=== PATIENT | female | born 1970 | race Caucasian/White ===

== ENCOUNTER → 2020-11-06 10:29 | Outpatient (CLI) | payer OTHER, SELFPAY ==
--- NOTE | ~2020-11-06 | DEXA_ITS ---
Bone Density Report Name: Joy Gomez Age: 50 Sex: Female Ethnicity: White Date of : 1970 Indication: postmenopausal; screening for osteoporosis; Referring Provider: Jo, Galilea Study: Bone densitometry was performed. Exam Date: November 06, 2020 Accession number: [id number] Bone Density: Region BMD T-score Z-score Classification AP Spine (L1-L4) 1.073 0.2 1.1 Normal Femoral Neck (Left) 0.888 0.4 1.3 Normal Total Hip (Left) 1.108 1.4 1.9 Normal Femoral Neck (Right) 0.812 -0.3 0.6 Normal Total Hip (Right) 1.040 0.8 1.4 Normal Total Hip Mean 1.074 1.1 1.7 Normal World Health Organization criteria for BMD impression classify patients as: Normal (T-score at or above -1.0), Osteopenia (T-score between -1.0 and -2.5), or Osteoporosis (T-score at or below -2.5). 10-year Fracture Risk: FRAX not reported because: All T-scores for Spine Total, Hip Total, Femoral Neck at or above -1.0 Previous Exams: Region Exam Age BMD T-score BMD Change BMD Change Date g/cm2 vs Baseline vs Previous AP Spine(L1-L4) 11/06/2020 50 1.073 0.2 0.054* 0.054* 03/13/2018 48 1.019 -0.3 Total Hip(Left) 11/06/2020 50 1.108 1.4 0.037* 0.037* 03/13/2018 48 1.071 1.1 Total Hip(Right) 11/06/2020 50 1.040 0.8 0.022 0.022 03/13/2018 48 1.018 0.6 *Denotes significance at 95% confidence level, LSC for AP Spine = 0.022 g/cm2, LSC for Total Hip = 0.027 g/cm2 Clinical Information Provided by Patient: Has used the following medications: Vitamin D Patient maximum height was 63 Menopause Age: 46 No regular weight bearing exercise Drinks caffeinated beverages Onset of menses at age 12 Number of children 2 Impression: The patient has normal bone mass. No significant bone loss was observed. Discussion: BONE DENSITY IS ABOVE THE MINIMUM DESIRABLE LEVEL AT ALL SKELETAL SITES TESTED. This patient?s bone mineral density is above the minimum desirable level (T-score -1.0 or better) at all sites measured. The patient should follow a healthful lifestyle (good nutrition with adequate calcium and vitamin D, and appropriate weight-bearing exercise). Follow-Up: Consider repeating this study in 5 years or sooner if there is some new clinical indication. Reported by: [facility] on 11/06/2020 10:44:00 AM. Reviewed, dictated and finalized at location A.
== END ==
PROVIDERS: PCP Family Medicine; Visit Provider Nurse Practitioner
DX: Z78.0 Asymptomatic menopausal state (principal)
CPT/HCPCS: 77080

== ENCOUNTER 2021-01-30 08:51 | Outpatient (CLI) | payer OTHER, SELFPAY ==
--- NOTE | ~2021-01-30 | XR_ITS ---
EXAMINATION: CT abdomen pelvis wo con, XR abdomen/kub 1V DATE: 01/30/2021 09:15 (accession [id number]), 01/30/2021 09:19 (accession [id number]) INDICATION: Left flank pain TECHNIQUE: Computed tomography (CT) of the abdomen and pelvis was performed without intravenous contr ast. The dose-length product was 1064.87 mGy-cm. Automated exposure control and iterative reconstruct ion technique were employed. KUB. COMPARISON: CT dated 09/26/2005. FINDINGS: Lung bases are unremarkable. No significant pleural or pericardial effusion heart size is n ormal. The spleen, pancreas, adrenal glands are unremarkable. There is a low-density lesion in the ri ght hepatic lobe measuring 1.3 cm. Recommend correlation with ultrasound. There are nonobstructing le ft renal stones, largest measuring 8.5 mm. No ureteral stones or hydronephrosis. Bladder is unremarka ble. Nonobstructive bowel gas pattern. Left renal stones are visible by KUB. No significant vascular abnormality. Severely atrophic right kidney. No acute bone or joint abnormality. IMPRESSION: 1. Left nephrolithiasis. 2: New hypodensity right hepatic lobe measuring 1.3 cm. Correlation with ultrasound recommended. Reviewed, dictated and finalized at location B. IMPRESSION: 1. Left nephrolithiasis. 2: New hypodensity right hepatic lobe measuring 1.3 cm. Correlation with ultras ound recommended.
== END 2021-01-30 08:52 | disposition home or self-care (01) ==
PROVIDERS: PCP Family Medicine; Visit Provider Urology
DX: R10.9 Unspecified abdominal pain (principal); N20.0 Calculus of kidney; R93.2 Abnormal findings on diagnostic imaging of liver and biliary tract
CPT/HCPCS: 74018; 74176

== ENCOUNTER 2021-02-06 12:14 | Outpatient (CLI) | payer OTHER, SELFPAY ==
--- NOTE | ~2021-02-06 | XR_ITS ---
EXAMINATION: XR abdomen/kub 1V DATE: 02/06/2021 12:45 INDICATION: Left flank pain. TECHNIQUE: A supine view of the abdomen on 2 radiographs was obtained. COMPARISON: CT abdomen and pelvis 01/30/2021 FINDINGS: There are no dilated loops of bowel. There are 4 stones in left kidney measuring up to 7 mm . IMPRESSION: 1. Left kidney stones. Reviewed, dictated and finalized at location A. IMPRESSION: 1. Left kidney stones.
== END 2021-02-06 12:15 | disposition home or self-care (01) ==
LOC: ANHIMG 12:18
PROVIDERS: PCP Family Medicine; Visit Provider Nurse Practitioner Family
DX: R10.9 Unspecified abdominal pain (principal); R35.0 Frequency of micturition; N20.0 Calculus of kidney
CPT/HCPCS: 74018

== ENCOUNTER 2021-02-23 10:08 | Outpatient (CLI) | payer OTHER, SELFPAY ==
--- NOTE | ~2021-02-23 | US_ITS ---
EXAMINATION: US abdomen limited EXAM DATE: 02/23/2021 11:39 INDICATION: K76.9 - Liver disease, unspecified . New hypodensity on CT, and ultrasound recommended. TECHNIQUE: Multiple grayscale and Doppler images of the abdomen right upper quadrant were obtained (b y a technologist who performed the scan) and subsequently reviewed. Correlation is made to CT abdomen 01/30/2021. FINDINGS: The pancreatic head and body are normal in appearance. The pancreatic tail is not visualized. The l iver has normal echogenicity and contour. Probable identification of the medially located right live r lobe lesion, measuring 1.7 x 1.3 x [address] it measures between 3 and 8 Hounsfield units consi stent with fluid. It is hypoechoic on this examination, nonspecific. There is no evidence of intrahepatic biliary duct dilation. Portal venous flow was seen in the hepat opedal, normal direction and has normal Doppler waveform. No right-sided hydronephrosis. Common bile duct measures 1-2 mm, which is normal. The gallbladder wall is normal in thickness, with expected amount of distention. No sonographic evidence of pericholecystic fluid. There is no cholel ithiases. Technologist performing exam reports patient did not demonstrate sonographic Barrios's sign. Please note that this sign is less reliable in patients who have received pain medication. IMPRESSION: Right liver lobe lesion probably cyst, but nonspecific by ultrasound. Optional 6-12 month follow-up ultrasound to confirm temporal stability. Reviewed, dictated and finalized at location A. IMPRESSION: Right liver lobe lesion probably cyst, but nonspecific by gerson munguia. Optional 6-12 month follow-up ultrasound to confirm temporal stability.
== END 2021-02-23 10:09 | disposition home or self-care (01) ==
LOC: ANHIMG 10:18
PROVIDERS: PCP Family Medicine; Visit Provider Family Medicine
DX: K76.9 Liver disease, unspecified (principal)
CPT/HCPCS: 76705

== ENCOUNTER 2021-03-03 10:35 | Outpatient (CLI) | payer OTHER, SELFPAY ==
--- NOTE | 2021-03-03 10:54 | ECG_ITS ---
Measurements Intervals [place] Rate: 77 P: 64 MS: 155 QRS: 40 QRSD: 93 T: 6 QT: 402 QTc: 457 Interpretive Statements SINUS RHYTHM WITH SINUS ARRHYTHMIA VENTRICULAR PREMATURE COMPLEXES BORDERLINE ST-T WAVE ABNORMALITY- ANTEROLAT/INF LEADS BORDERLINE ECG Electronically Signed On 03-03-2021 11:12:00 CDT by Tyron Laurent D.O.
[2021-03-03 11:13] LABS: INR 0.9; Partial Thromboplastin Time 24.8 SECONDS (22.3-36.8); Prothrombin Time 12.2 Seconds (11.1-14.7)
== END 2021-03-03 10:36 | disposition home or self-care (01) ==
PROVIDERS: PCP Family Medicine; Referring Provider Anesthesiology; Visit Provider Urology
DX: N20.0 Calculus of kidney (principal); I10 Essential (primary) hypertension; Z01.818 Encounter for other preprocedural examination; R94.31 Abnormal electrocardiogram [ECG] [EKG]
CPT/HCPCS: 36415; 85610; 85730; 87086; 93005

== ENCOUNTER 2021-03-06 01:05 | Day surgery (SDC) | payer OTHER, SELFPAY ==
--- NOTE | 2021-03-02 07:47 | P.HP_ITS ---
History of Present Illness History of Present Illness Consent: Risks, benefits, and alternatives have been discussed and questions answered. Patient agrees to proceed with procedure. Chief complaint: Left Renal Kidney Stone Narrative: Joy Gomez is a 51 year old female who has a history of spontaneously passing multiple stones in the past, but never requiring intervention. She recently presented with left flank pain and imaging demonstrated several stones in her left kidney up to 7 millimeters. After discussion of options he elected to proceed with left ESWL. She is aware of alternative treatment options and aware of the risk of this procedure including, but not limited to, persistent stone, injury to the kidney, hematuria. Review of Systems Cardiovascular: Cardiovascular: Denies chest pain, Denies lightheadedness, Denies palpitations and Denies dyspnea Respiratory: Respiratory: Denies dyspnea Gastrointestinal: Gastrointestinal: Denies diarrhea, Denies nausea and Denies vomiting Genitourinary: Genitourinary: Denies hematuria and Denies dysuria Endocrine: Endocrine: Denies palpitations PMFSH Past Medical History Medical History Atrophy of right kidney Single kidney Family History Family History Mother Family history of mental disorder Depression Family history of emphysema Father Family history of cardiovascular disease Family history of malignant neoplasm Acute myocardial infarction Other Diabetes mellitus Family history of allergic disorder Hypertension Social History Social History Smoking status: Never smoker Alcohol intake: current Alcohol use details: rarely Spiritual care concerns: No Meds Home Medications and Allergies Home Medications Medication Instructions Recorded Confirmed Type amlodipine 5 mg tablet 5 mg PO DAILY #90 tablet 02/19/21 02/19/21 Rx cholecalciferol (vitamin D3) 100 100 mcg PO DAILY 02/19/21 02/19/21 History mcg (4,000 unit) tablet lisinopril 10 1 tablet PO DAILY #90 tablet 02/19/21 02/19/21 Rx mg-hydrochlorothiazide 12.5 mg tablet atorvastatin 10 mg tablet 10 mg PO QHS #90 tablet 02/20/21 Rx Allergies Allergy/AdvReac Type Severity Reaction Status Date / Time shellfish derived Allergy Severe Swelling Verified 02/19/21 16:39 of the Eye Penicillins Allergy Intermediate Skin Verified 02/19/21 16:39 Reaction Exam Const: General: no acute distress Resp: Effort & Inspection: normal respiratory effort GI: Inspection: non-distended GI Palp: No abdominal tenderness and No Guarding due to palpation present (GI) Auscultation: normal bowel sounds Assessment and Plan Assessment and plan (1) Calculus of kidney: Code(s): N20.0 - Calculus of kidney Status: Acute Assessment and Plan: * Left ESWL
--- NOTE | ~2021-03-06 | XR_ITS ---
XR abdomen/kub 1V 03/06/2021 06:48 INDICATION: Renal stones. TECHNIQUE: KUB COMPARISON: 02/06/2021 FINDINGS: Bowel gas pattern is normal. There is no evidence of free air, mass, organomegaly, ascites or obstruction. There are multiple left renal stones, largest in the lower pole measuring 8 mm. Righ t kidney is partially obscured by bowel content. The bones appear intact. IMPRESSION: 1: Left nephrolithiasis.. Reviewed, dictated and finalized at location A. IMPRESSION: 1: Left nephrolithiasis..
--- NOTE | 2021-03-06 06:36 | WPDHPUPDATE1 ---
History and Physical Update Update Date/Time: 03/06/21 06:36 History and Physical has been reviewed, including an updated exam of the patient. There are NO changes in the patient's condition. Risks, benefits, and alternatives have been discussed and questions answered. Patient agrees to proceed with procedure.
[2021-03-06] MEDS: LACTATED RINGERS 1,000 ML 30 ML IV CONT (07:26)
--- NOTE | 2021-03-06 07:40 | WPDANESEPPF ---
Anes - Initial Pre Proc Eval Procedure: Operation Date: 03/06/21 08:30 Proposed Procedures p Left Renal Extracorporeal Shock Wave Lithotripsy - Jacobo Arellano MD Date/Time: 03/06/21 07:40 Surgeon: Jacobo Arellano MD Pre Op Diagnosis: Left Renal Kidney Stone Patient Data Age: 51 Gender: F Height: Weight: Allergies Allergy/AdvReac Type Severity Reaction Status Date / Time shellfish derived Allergy Severe Swelling Verified 03/06/21 07:42 of the Eye Penicillins Allergy Intermediate Skin Verified 03/06/21 07:42 Reaction Home Medications Medication Instructions Recorded Confirmed Type cholecalciferol (vitamin D3) 100 100 mcg PO DAILY 02/19/21 02/19/21 History mcg (4,000 unit) tablet lisinopril 10 1 tablet PO DAILY #90 tablet 02/19/21 02/19/21 Rx mg-hydrochlorothiazide 12.5 mg tablet atorvastatin 10 mg tablet 10 mg PO QHS #90 tablet 02/20/21 Rx amlodipine 5 mg PO HS 03/03/21 History Patient hx anesthesia problems: none Family hx anesthesia problems: none PMFSH Past Medical History Medical History (Updated 03/06/21 @ 07:43 by Bill Ferreira MD) Atrophy of right kidney Hyperlipidemia Obesity Single kidney Surgical History Surgical History History of lithotripsy Family History Family History Mother Family history of mental disorder Depression Family history of emphysema Father Family history of cardiovascular disease Family history of malignant neoplasm Acute myocardial infarction Other Diabetes mellitus Family history of allergic disorder Hypertension Social History Social History Smoking status: Never smoker Alcohol intake: current Drinks per week: 1 Alcohol use details: rarely Living arrangements: with family Spiritual care concerns: No Anes - Eval Final PreProcedure Day of Procedure 03/06/21 07:40 Patient weight: obese Heart: regular rate and rhythm Lungs: clear to auscultation Airway: Mallampati scale class II Neurological: alert and oriented Last oral intake: >/= 8 hours ASA classification: II Emergent: no Anesthetic plan: proceed Anesthesia type and monitoring: general LMA and standard monitoring Informed Consent: The patient's anesthetic plan and its attendant risks and benefits were discussed with the patient/family/POA. Questions were solicited and answers provided to the satisfaction of the patient/family/POA.
[2021-03-06 07:46] VITALS: BP 145/84; PULSE 94; RESP 16; TEMP 36.5; O2SAT 100
[2021-03-06] MEDS: ceFAZolin 2 GM/D5W 50 ML 2 GM/50 ML BAG IVPB (08:21)
--- NOTE | 2021-03-06 08:53 | W.PM.PROC2 ---
Procedure Note - Detailed Date of Procedure 03/06/21 Pre-op Diagnosis Left Kidney Stone Post-op Diagnosis same Procedure Performed Left ESWL Surgeon Jacobo Arellano MD Description of Procedure The patient was brought to the operative suite where she was placed in the supine position on the Dornier lithotripsy table. The focal point of the lithotripter was placed at a 7mm left renal calculus. A total of 2500 shocks were delivered at a power setting of 4. There appeared to be good fragmentation of the stone. The patient tolerated the procedure well and was taken to the recovery room in good condition. Drains No Packing No Pathology none sent Complications No immediate complications Condition stable Disposition PACU
[2021-03-06 09:03] VITALS: BP 107/52; PULSE 57; RESP 14; TEMP 36.2; O2SAT 98
[2021-03-06 09:15] VITALS: BP 107/57; PULSE 56; RESP 13; O2SAT 100
[2021-03-06 09:30] VITALS: BP 122/62; PULSE 64; RESP 18; O2SAT 100
[2021-03-06 09:39] VITALS: BP 146/72; PULSE 57
[2021-03-06 10:10] VITALS: BP 141/71; PULSE 58
== END 2021-03-06 10:17 | disposition home or self-care (01) ==
PROVIDERS: PCP Family Medicine; Visit Provider Urology
PROC: (CPT 50590; principal; 2021-03-06 08:30)
DX: N20.0 Calculus of kidney (principal); E78.5 Hyperlipidemia, unspecified; E66.9 Obesity, unspecified; N26.1 Atrophy of kidney (terminal)
CPT/HCPCS: 50590; 36415; 74018; 85610; 85730; 87086; 93005; J0690; J1100; J2250; J2405; J2704; J3010; J7120

== ENCOUNTER 2021-03-09 01:48 | Day surgery (SDC) | payer OTHER, SELFPAY ==
[2021-02-19 16:42] VITALS: BMI 36.5
[2021-03-09 06:34] VITALS: BP 143/76; PULSE 65; RESP 18; TEMP 36; O2SAT 100
[2021-03-09] MEDS: LACTATED RINGERS 1,000 ML 150 ML IV CONT (06:49)
--- NOTE | 2021-03-09 06:50 | WPDANESEFPP ---
Anes - Eval Final PreProcedure Day of Procedure 03/09/21 06:50 Patient weight: obese Heart: regular rate and rhythm Lungs: clear to auscultation Airway: Mallampati scale class II Neurological: alert and oriented Last oral intake: >/= 8 hours ASA classification: II Anesthetic plan: proceed Anesthesia type and monitoring: general GIVS and standard monitoring Informed Consent: The patient's anesthetic plan and its attendant risks and benefits were discussed with the patient/family/POA. Questions were solicited and answers provided to the satisfaction of the patient/family/POA.
--- NOTE | 2021-03-09 07:34 | PM.HPGS ---
History of Present Illness History of Present Illness Consent: Risks, benefits, and alternatives have been discussed and questions answered. Patient agrees to proceed with procedure. Chief complaint: neoplasm screening Narrative: Joy Gomez is a 51 year old female here for first screening colonoscopy Review of Systems Constitutional: Constitutional: Denies headache(s) and Denies weakness Eyes: Eyes: Denies blurry vision ENT: Reports Normal hearing present, Denies headache(s) and Denies neck pain Cardiovascular: Cardiovascular: Denies chest pain and Denies dyspnea Respiratory: Respiratory: Denies dyspnea Gastrointestinal: Gastrointestinal: Reports no additional gastrointestinal complaints Genitourinary: Genitourinary: Denies dysuria Musculoskeletal: Musculoskeletal: Denies neck pain Integumentary/Breasts: Skin/Breast: Denies dry skin Neurologic: Reports Normal hearing present, Denies headache(s) and Denies weakness Psychiatric: Psychiatric: Denies anxiety Endocrine: Endocrine: Denies change in body appearance Hematologic/Lymphatic: Hematologic/Lymphatic: Denies easy bleeding Allergic/Immunologic: Allergic/Immunologic: Denies urticaria PMFSH Past Medical History Medical History (Updated 03/09/21 @ 07:34 by Jesús Ureña MD) Atrophy of right kidney Colon cancer screening Hyperlipidemia Obesity Single kidney Surgical History Surgical History History of lithotripsy Family History Family History Mother Family history of mental disorder Depression Family history of emphysema Father Family history of cardiovascular disease Family history of malignant neoplasm Acute myocardial infarction Other Diabetes mellitus Family history of allergic disorder Hypertension Social History Social History Smoking status: Never smoker Alcohol intake: current Drinks per week: 1 Alcohol use details: rarely Living arrangements: with family Spiritual care concerns: No Meds Home Medications and Allergies Home Medications Medication Instructions Recorded Confirmed Type cholecalciferol (vitamin D3) 100 100 mcg PO DAILY 02/19/21 03/06/21 History mcg (4,000 unit) tablet lisinopril 10 1 tablet PO DAILY #90 tablet 02/19/21 03/06/21 Rx mg-hydrochlorothiazide 12.5 mg tablet atorvastatin 10 mg tablet 10 mg PO QHS #90 tablet 02/20/21 03/09/21 Rx amlodipine 5 mg PO HS 03/03/21 03/09/21 History Allergies Allergy/AdvReac Type Severity Reaction Status Date / Time shellfish derived Allergy Severe Swelling Verified 03/09/21 06:33 of the Eye Penicillins Allergy Intermediate Skin Verified 03/09/21 06:33 Reaction Vital Signs Vital Signs - 24 hr 03/09/21 06:34 Temperature 96.8 F L Pulse Rate 65 Respiratory Rate 18 Blood Pressure 143/76 H Pulse Oximetry 100 Exam Const: General: comfortable and no acute distress HENMT: General nose exam: Normal nares present Eyes: General: appearance normal, both eyes and all related structures Neck: Neck: no JVD Resp: Auscultation: clear to auscultation bilaterally Cardio: Rate: regular rate Rhythm: regular rhythm GI: Inspection: non-distended GI Palp: Yes Soft to palpation Skin: General skin exam: normal color Neuro: General: gait normal Speech: normal speech Extrem: General: normal to inspection Psych: Mental Status: mental status grossly normal Assessment and Plan Assessment and plan (1) Colon cancer screening: Code(s): Z12.11 - Encounter for screening for malignant neoplasm of colon Status: Acute Assessment and Plan: colonoscopy
[2021-03-09 07:57] VITALS: BP 140/82; PULSE 54; RESP 15; O2SAT 95
[2021-03-09 08:07] VITALS: BP 129/73; PULSE 56; RESP 18; O2SAT 96
[2021-03-09 08:17] VITALS: BP 131/76; PULSE 58; RESP 20; O2SAT 98
== END 2021-03-09 08:30 | disposition home or self-care (01) ==
PROVIDERS: PCP Family Medicine; Visit Provider Internal Medicine Gastroenterology
PROC: 0DJD8ZZ Inspection of Lower Intestinal Tract, Via Natural or Artificial Opening Endoscopic (ICD-10-PCS; CPT 45378; principal; 2021-03-09 07:30)
DX: Z12.11 Encounter for screening for malignant neoplasm of colon (principal); D12.2 Benign neoplasm of ascending colon; E78.5 Hyperlipidemia, unspecified; N26.1 Atrophy of kidney (terminal); E66.9 Obesity, unspecified; Z68.34 Body mass index [BMI] 34.0-34.9, adult
CPT/HCPCS: 45380; 88305; J2704; J7120

== ENCOUNTER 2021-03-23 16:44 | Outpatient (CLI) | payer OTHER, SELFPAY ==
--- NOTE | ~2021-03-23 | XR_ITS ---
XR abdomen/kub 1V DATE: 03/23/2021 17:05 INDICATION: Left abdominal pain. Kidney stones. TECHNIQUE: AP projection, 2 views COMPARISON: 03/06/2021 KUB FINDINGS: Interval resolution of 8 mm calcified stone overlying the lower pole left kidney. In its pl [place] is one or more much smaller stone or stones. Several calcifications overlie the upper pole left k idney, stable since 03/06/2021. The psoas shadows are intact. No visceromegaly is evident. No evidence of bowel obstruction. IMPRESSION: Substantially diminished size or resolution of lower pole left renal 8 mm calcified stone since 03/06/2021 Reviewed, dictated and finalized at Location A. Reviewed, dictated and finalized at location A. IMPRESSION: Substantially diminished size or resolution of lower pole left marilyn l 8 mm calcified stone since 03/06/2021
== END 2021-03-23 16:45 | disposition home or self-care (01) ==
LOC: ANHIMG 16:50
PROVIDERS: PCP Family Medicine; Visit Provider Nurse Practitioner Family
DX: N20.0 Calculus of kidney (principal)
CPT/HCPCS: 74018

== ENCOUNTER 2021-09-26 14:15 | Outpatient (CLI) | payer OTHER, SELFPAY ==
--- NOTE | ~2021-09-26 | XR_ITS ---
XR abdomen/kub 1V 09/26/2021 14:29 Indication: Left flank pain Procedure: KUB Comparison: Comparison to multiple prior studies sequentially, with oldest reviewed study dated 01/30. Findings: Bowel gas pattern is nonobstructive. There are nonobstructing left renal stones. No acute o sseous abnormality. Impression: 1: Left nephrolithiasis. Reviewed, dictated and finalized at location A. [employer] SERVER Impression: 1: Left nephrolithiasis.
== END 2021-09-26 14:16 | disposition home or self-care (01) ==
LOC: ANHIMG 14:21
PROVIDERS: PCP Family Medicine; Visit Provider Urology
DX: R10.9 Unspecified abdominal pain (principal); N20.0 Calculus of kidney
CPT/HCPCS: 74018

== ENCOUNTER → 2022-04-27 16:46 | Outpatient (CLI) | payer OTHER, SELFPAY ==
--- NOTE | ~2022-04-27 | MM_ITS ---
EXAMINATION: MM screening [facility] w miguel ángel HISTORY: Screening mammogram TECHNIQUE: Craniocaudal and mediolateral oblique 3-D tomosynthesis images were obtained and synthetic 2-D images were generated. CAD analysis was submitted and interpreted. COMPARISON: 11/07/2020, 01/25/1917, 05/19/2015 BREAST PARENCHYMAL COMPOSITION: There are scattered areas of fibroglandular density. FINDINGS: There is no suspicious mass, calcification, or architectural distortion to suggest malignan cy in either breast. There has been no suspicious interval change. IMPRESSION: 1. No mammographic evidence of malignancy. 2. Recommend routine screening mammography in one year. BI-RADS Category 1: Negative Reviewed, dictated and finalized at location A.
== END ==
PROVIDERS: PCP Family Medicine; Visit Provider Nurse Practitioner
DX: Z12.31 Encounter for screening mammogram for malignant neoplasm of breast (principal)
CPT/HCPCS: 77063; 77067